=== PATIENT | female | born 1970 | race Caucasian/White ===

== ENCOUNTER 2018-01-12 18:55 | Emergency (ER) | payer OTHER ==
[2018-01-12 19:10] VITALS: PULSE 90; O2SAT 98
--- NOTE | 2018-01-12 20:12 | ERPHSYRPT ---
- History of Present Illness Time Seen by Provider: 01/12/18 19:37 Source: patient Exam Limitations: no limitations Patient Subjective Stated Complaint: Pt arrives to ER with c/o fall down 1 stair states missed a step and twisted her left ankle. Full sensation in left foot with FROM of toes, limited range of motion to ankle d/t pain. Denies any other injuries. Triage Nursing Assessment: see above Physician History: Pt states, she fell on steps about one hour ago, twisted her left ankle, denies other injury or complaints. Pt states, she took a Motrin before coming. Method of Injury: fell Occurred: just prior to arrival Quality: constant Severity of Pain-Max: moderate Severity of Pain-Current: moderate Lower Extremities Pain: ankle: left Modifying Factors: Improves With: movement Associated Symptoms: none Allergies/Adverse Reactions: No Known Drug Allergies Allergy (Unverified 01/12/18 19:11) Home Medications: Carbidopa/Levodopa [Carbidopa-Levodopa 25-250 Tab] 1 tab PO DAILY 01/12/18 [ History] Cyclobenzaprine HCl [Flexeril] 5 mg PO 01/12/18 [History] Ibuprofen 800 mg PO Q6HPRN PRN 01/12/18 [History] Omeprazole [Prilosec] 20 mg PO DAILY 01/12/18 [History] - Review of Systems Constitutional: No Symptoms Musculoskeletal: Other (left ankle pain) All Other Systems: Reviewed and Negative - Past Medical History Pertinent Past Medical History: Yes Cardiac History: Hypertension GI Medical History: GERD Other Medical History: restless leg syndrome - Past Surgical History Past Surgical History: Yes - Social History Smoking Status: Former smoker Exposure to second hand smoke: No Drug Use: none Patient Lives Alone: No - Female History Hx Now: No - Nursing Vital Signs Nursing Vital Signs: Initial Vital Signs Temperature 98.7 F 01/12/18 19:04 Pulse Rate 90 01/12/18 19:04 Respiratory Rate 18 01/12/18 19:04 Blood Pressure 162/90 01/12/18 19:04 O2 Sat by Pulse Oximetry 98 01/12/18 19:04 Pain Scale Pain Intensity 2 - Physical Exam General Appearance: no apparent distress Eyes, Ears, Nose, Throat Exam: normal ENT inspection, moist mucous membranes Neck Exam: normal inspection, non-tender Cardiovascular/Respiratory Exam: chest non-tender, normal breath sounds, heart sounds normal Gastrointestinal/Abdominal Exam: non-tender, soft Back Exam: normal inspection, No CVA tenderness, No vertebral tenderness Ankle Exam: left ankle: soft tissue tenderness (lateral ankjle and dorsal foot, no hematoma, good distal pulses and sensation.) Foot Exam: left foot: soft tissue tenderness Mental Status Exam: alert, oriented x 3 Skin Exam: normal color, warm, dry SpO2 Interpretation: normal SpO2: 98 Oxygen Delivery: Room Air - Course Nursing assessment & vital signs reviewed: Yes - Radiology Exams Left Ankle X-ray Interpretation: Interpreted by me, Other (small chip fracture of the fibula tip) Ordered Tests: Active Orders 24 hr Category Date Time Status Crutches STAT Care 01/12/18 20:20 Ordered Immobilizer STAT Care 01/12/18 20:22 Ordered ANKLE (3 VIEWS) Stat Exams 01/12/18 19:59 Taken - Progress Progress: unchanged Progress Note: 01/12/18 20:24 I discussed X ray findings with her, and applied ortho boot, and given crutches , advised to rest x 2-3 days with elevated leg, apply ice to swelling and follow up with [employer] in 3-4 days. Counseled pt/family regarding: diagnosis, need for follow-up, rad results - Departure Time of Disposition: 20:25 Departure Disposition: Home Clinical Impression: Ankle sprain Qualifiers: Encounter type: initial encounter Involved ligament of ankle: anterior talofibular ligament Laterality: left Qualified Code(s): S93.492A - Sprain of other ligament of left ankle, initial encounter Condition: Stable Critical Care Time: No Referrals: SERENE JIMENEZ [Primary Care Provider] - Instructions: Ankle Sprain (DC) Additional Instructions: Rest x 2-3 days with elevated leg, apply ice or cold compresses to swelling, return if severe pain, discoloration of the toes, follow up with [employer] in 3 -4 days!
[2018-01-12 21:15] VITALS: BP 143/94
--- NOTE | 2018-01-13 14:58 | XRAY ---
Exam: Portable 3 view left ankle series from 01/12/2018. Comparison: None. Indication: Fall. Findings: AP, oblique, and lateral radiographs were obtained. There is moderate to marked soft tissue swelling overlying the anterior lateral aspect of the left ankle. A tiny curvilinear calcification is seen adjacent to the inferior margin of the distal left fibula consistent with a small cortical avulsion fracture injury. The distal left tibia appears intact. The left ankle mortise appears well-preserved and is uniform. A mild plantar calcaneal spur is seen. Impression: 1. There is a small cortical avulsion fracture injury at the inferior margin of the distal left fibula. Moderate to marked soft tissue swelling overlies the anterior lateral aspect of the left ankle. 2. The distal left tibia appears intact. 3. Mild plantar left calcaneal spur.
== END 2018-01-12 21:23 | disposition home or self-care (01) ==
LOC: ED 18:55
DX: S93.402A Sprain of unspecified ligament of left ankle, initial encounter (principal); W10.9XXA Fall (on) (from) unspecified stairs and steps, initial encounter; Y92.009 Unspecified place in unspecified non-institutional (private) residence as the place of occurrence of the external cause
CPT/HCPCS: 73610; 99284

== ENCOUNTER 2018-11-11 08:56 | Day surgery (SDC) | payer OTHER ==
--- NOTE | 2018-11-08 11:19 | HP ---
ANTICIPATED PROCEDURE: Cholecystectomy. HISTORY OF PRESENT ILLNESS: Patient presents with upper abdominal discomfort, ultrasound negative. HIDA scan 14%. Presents for cholecystectomy. PAST MEDICAL HISTORY: ALLERGIES: NONE. MEDICATIONS: Prilosec, losartan, baby aspirin. PAST SURGICAL HISTORY: None. SOCIAL HISTORY: Negative. FAMILY HISTORY: Negative. REVIEW OF SYSTEMS: Hypertension, gastroesophageal reflux disease, hyperlipidemia, restless leg syndrome. PHYSICAL EXAMINATION: VITAL SIGNS: Normal. CHEST: Clear. COR: Regular. IMPRESSION: Gallbladder dyskinesia. PLAN: Laparoscopic cholecystectomy.
[~2018-11-11 08:56] MED LIST: Lactated Ringers 1,000 ML IV ONE; Lactated Ringers 1,000 ML IV SCH; MEFOXIN 2 GM PREMIX** 2 GM/50 ML ML IV ONE; Sensorcaine 0.25% 10 ML ONE
[2018-11-11] MEDS ORDERED: DILAUDID 2 MG INJECTION IV ONE (08:57)
[2018-11-11] MEDS ORDERED: Zemuron 100 MG/10 ML IJ ONE (08:57)
[2018-11-11] MEDS ORDERED: BRIDION 200MG/2ML IV ONE (08:57)
[2018-11-11] MEDS ORDERED: Decadron 4 MG INJ IV ONE (08:57)
[2018-11-11] MEDS ORDERED: DIPRIVAN 200 MG/20 ML IV ONE (08:57)
[2018-11-11] MEDS ORDERED: TORAdol 30 mg Injection IJ ONE (08:57)
[2018-11-11] MEDS ORDERED: Quelicin Fliptop 200 MG/10 ML IJ ONE (08:57)
[2018-11-11] MEDS ORDERED: ZOFRAN ODT 4 MG PO ONE (08:57)
[2018-11-11] MEDS ORDERED: SUBLIMAZE 100 MCG/2 ML IV ONE (08:57)
[2018-11-11] MEDS ORDERED: SUBLIMAZE 100 MCG/2 ML ONE (12:42)
[2018-11-11] MEDS ORDERED: DILAUDID 2 MG INJECTION ONE (12:42)
--- NOTE | 2018-11-11 13:40 | OP ---
SURGERY DATE/TIME: 11/11/2018 1135 PREOPERATIVE DIAGNOSIS: Gallbladder dyskinesia. POSTOPERATIVE DIAGNOSIS: Gallbladder dyskinesia. PROCEDURE: Laparoscopic cholecystectomy. SURGEON: Dr. Moses. ANESTHESIA: General endotracheal tube. COMPLICATIONS: None. CONDITION: Stable. INDICATIONS: A patient with upper abdominal pain, ultrasound negative, HIDA scan positive. Seen and examined. Procedure discussed in detail and wished to proceed. DESCRIPTION OF PROCEDURE AND FINDINGS: Taken to surgery. General anesthetic, routine prep and drape. Veress needle inserted. Opening pressure of 1, insufflating pressure 14. Four - 5's. Good visualization. Cystic artery defined. Cystic artery defined. Both structures triply clipped and transected. Clips noted across and well approximated. Gallbladder rolled out of gallbladder fossa. The gallbladder delivered through abdominal port with small amount of widening. Hole closure device was used. Field irrigated and was dry. CO2 exsufflated. Skin closed with 4-0 Vicryl and Steri-Strips. The patient tolerated the procedure satisfactorily.
[2018-11-11] MEDS ORDERED: Narcan 0.4 MG/ML IV ONE (16:00)
[2018-11-11] MEDS ORDERED: NARCAN 2 MG/2 ML IV PRN (16:26)
[2018-11-11 16:56] VITALS: O2SAT 106
[2018-11-11 17:04] VITALS: BP 133/84; PULSE 105
== END 2018-11-11 16:40 | disposition home or self-care (01) ==
LOC: SDC 08:56
PROVIDERS: ATTEND Surgery
DX: K82.8 Other specified diseases of gallbladder (principal); I10 Essential (primary) hypertension; E78.5 Hyperlipidemia, unspecified; K21.9 Gastro-esophageal reflux disease without esophagitis
CPT/HCPCS: 88304; J0330; J0694; J1100; J1170; J1885; J2310; J2704; J3010; Q0162